=== PATIENT | female | born 1990 | race Caucasian/White ===

== ENCOUNTER 2019-04-30 00:58 | Emergency (ER) | payer MEDICAID ==
[~2019-04-30] VITALS: Ht 157.5 cm; Wt 110.0 kg
[2019-04-30 01:03] VITALS: Ht 157.5 cm; Wt 110.0 kg
[2019-04-30 01:21] LABS: BASOPHILS 0.3 % (0-2); EOSINOPHILS 2.7 % (0-7); HEMATOCRIT 46.9 % (36.0-48.0); HEMOGLOBIN 15.9 g/dL (12-16); IMMATURE GRANULOCYTES 0.4 % (0-5); LYMPHOCYTES 26.6 % (15-50); MCH 30.1 pg (26.0-34.0); MCHC 33.9 g/dL (31.0-37.0); MCV 88.8 fL (80.0-100.0); MEAN PLATELET VOLUME 9.8 fL (7.4-10.4); MONOCYTES 8.8 % (2-11); NEUTROPHILS 61.2 % (40-80); PLATELET COUNT 349 10x3/uL (130-400); RBC 5.28 10x6/uL (4.00-5.40); WBC 14.2 10x3/uL (4.8-10.8)
[2019-04-30 01:36] LABS: CALC OSMOLALITY 279 mosm/kg (275-300); CALCIUM 9.7 mg/dL (8.5-10.1); CHLORIDE - SERUM 102 mmol/L (98-107); CREATININE - SERUM 0.9 mg/dL (0.6-1.3); GLUCOSE 103 mg/dL (74-106); SODIUM 140 mmol/L (136-145); UREA NITROGEN 16 mg/dL (7-18); eGFR NON AFRICAN AMERICAN 79 mL/min (90-120)
[2019-04-30 01:42] LABS: ALBUMIN 3.8 g/dL (3.4-5.0); ALKALINE PHOSPHATASE 108 U/L (30-120); ALT (SGPT) 26 U/L (10-68); BILIRUBIN - TOTAL 0.52 mg/dL (0.2-1.3); LIPASE 115 U/L (73-393); PROTEIN - SERUM 8.4 g/dL (6.4-8.2)
[2019-04-30 01:43] LABS: BILIRUBIN NEGATIVE (NEGATIVE); GLUCOSE NEGATIVE (NEGATIVE); KETONE NEGATIVE (NEGATIVE); NITRITE NEGATIVE (NEGATIVE); UROBILINOGEN NORMAL (NORMAL)
[2019-04-30 01:46] LABS: BACTERIA FEW /hpf (NEGATIVE); EPITHELIAL CELLS 0-5 /hpf (0-5); RED CELLS - URINE 0-5 /hpf (0-5)
[2019-04-30] MEDS ORDERED: FLOMAX0.4 MG PO (02:36)
[2019-04-30] MEDS ORDERED: LEVAQUIN750 MG PO (02:36)
[2019-04-30] MEDS ORDERED: HYDROCODON-ACE1 EA10 PO (02:36)
[2019-04-30 02:51] VITALS: BP 125/79
== END 2019-04-30 02:51 | disposition home or self-care (01) ==
LOC: D.ER 00:58
PROVIDERS: Family Medicine
DX: N39.0 Urinary tract infection, site not specified (principal); N20.0 Calculus of kidney